=== PATIENT | male | born 1970 | race American Indian/Alaskan Native ===

== ENCOUNTER 2017-05-17 19:13 | Emergency (ER) | payer BC ==
[2017-05-17] MEDS ORDERED: Sodium Chloride 0.9% 1,000 ML IV STA ×2 (19:46→22:27)
--- NOTE | 2017-05-17 19:52 | ED PDOC ---
Arrival/HPI - General Chief Complaint: Chest Pain Time Seen by Provider: 05/17/17 19:24 Historian: Patient - History of Present Illness Narrative History of Present Illness (Text): 05/17/17 19:50 47 year old male PMHX HTN presents to the Emergency department complaining of episodes of vomiting associated with left sided chest discomfort some upper left abdominal discomfort at times. Patient denies any fever, chills, shortness of breath, back pain, neck pain, headache, dizziness or any other complaints. Time/Duration: Other (< 24 hours) Symptom Onset: Gradual Symptom Course: Unchanged Context: Home Past Medical History - Provider Review Nursing Documentation Reviewed: Yes - Infectious Disease Hx of Infectious Diseases: None - Cardiac Hx Cardiac Disorders: Yes Hx Hypertension: Yes - Psychiatric Hx Substance Use: No Family/Social History - Physician Review Nursing Documentation Reviewed: Yes Family/Social History: Unknown Family HX Smoking Status: Current Some Days Smoker Hx Alcohol Use: No Hx Substance Use: No Allergies/Home Meds Allergies/Adverse Reactions: Allergies No Known Allergies Allergy (Unverified 05/17/17 19:45) Home Medications: Home Meds Medication Instructions Recorded Confirmed Cholecalciferol (Vitamin D3) 4,000 unit PO DAILY 05/17/17 05/17/17 [Vitamin D3] Lisinopril [Zestril] 10 mg PO DAILY 05/17/17 05/17/17 Multimineral/Multivitamin 1 tab PO DAILY 05/17/17 05/17/17 [Therapeutic-M Tab] Review of Systems - Physician Review All systems were reviewed & negative as marked: Yes - Review of Systems Constitutional: absent: Fevers, Night Sweats Respiratory: absent: SOB Cardiovascular: absent: Chest Pain Gastrointestinal: Abdominal Pain (left sided discomfort), Vomiting Musculoskeletal: absent: Back Pain, Neck Pain Neurological: absent: Headache, Dizziness Physical Exam Vital Signs Reviewed: Yes Vital Signs Temp Pulse Resp BP Pulse Ox 05/18/17 09:12 74 168/120 H 05/18/17 08:51 82 16 159/94 H 95 05/18/17 06:53 67 19 151/94 H 99 05/18/17 05:08 78 16 156/94 H 98 05/18/17 02:52 66 16 144/82 97 05/17/17 23:00 90 20 116/72 100 05/17/17 21:30 80 18 144/80 96 05/17/17 19:28 98.0 F 74 18 166/101 H 100 Temperature: Afebrile Blood Pressure: Hypertensive Pulse: Regular Respiratory Rate: Normal Appearance: Positive for: Well-Appearing, Non-Toxic, Comfortable Pain Distress: None Mental Status: Positive for: Alert and Oriented X 3 - Systems Exam Head: Present: Atraumatic, Normocephalic Pupils: Present: PERRL Extroacular Muscles: Present: EOMI Conjunctiva: Present: Normal Mouth: Present: Moist Mucous Membranes Neck: Present: Normal Range of Motion Respiratory/Chest: Present: Clear to Auscultation, Good Air Exchange. No: Respiratory Distress, Accessory Muscle Use Cardiovascular: Present: Regular Rate and Rhythm, Normal S1, S2. No: Murmurs Abdomen: Present: Normal Bowel Sounds. No: Tenderness, Distention, Peritoneal Signs, Rebound, Guarding Back: Present: Normal Inspection Upper Extremity: Present: Normal Inspection. No: Cyanosis, Edema Lower Extremity: Present: Normal Inspection. No: Edema Neurological: Present: GCS=15, CN II-XII Intact, Speech Normal, Motor Func Grossly Intact, Normal Sensory Function Skin: Present: Warm, Dry, Normal Color. No: Rashes Psychiatric: Present: Alert, Oriented x 3, Normal Insight, Normal Concentration Medical Decision Making ED Course and Treatment: 05/17/17 19:46 Impression: 47 year old male presents to the Emergency department complaining of vomiting and chest discomfort. Plan: -- Chest xray -- EKG -- Labs -- Pepcid, Toradol, Zofran, Sodium Chloride IV fluids -- Reassess and disposition Progress Notes: 05/17/17 21:05 EKG: Ordered, reviewed, and independently interpreted the EKG. Rate : 70 BPM Rhythm : NSR Interpretation : normal intervals, normal EKG 05/17/17 22:23 Patient will be admitted under service.Dr. Duncan and Dr. Meredith GI and Cardiac consults requested. - Lab Interpretations Lab Results: 05/17/17 19:50 05/17/17 19:50 Lab Results 05/17/17 19:50: CK-MB (CK-2) 0.6 05/17/17 19:50: WBC 8.2, RBC 5.20, Hgb 16.3, Hct 46.0, MCV 88.5, MCH 31.3, MCHC 35.4, RDW 12.9, Plt Count 199, MPV 9.6 05/17/17 19:50: Sodium 139, Potassium 3.9, Chloride 101, Carbon Dioxide 24, Anion Gap 19, BUN 12, Creatinine 0.8, Est GFR ( Amer) > 60, Est GFR (Non- Af Amer) > 60, Random Glucose 153 H, Calcium 10.6 H, Total Bilirubin 0.7, AST 43 , ALT 25, Alkaline Phosphatase 78, Lactate Dehydrogenase 397, Total Creatine Kinase 277 H, CK-MB (CK-2) 0.6, CK-MB (CK-2) % Cancelled, Troponin I < 0.01, Total Protein 8.4 H, Albumin 5.0 H, Globulin 3.4, Albumin/Globulin Ratio 1.5, Lipase 27 05/17/17 19:50: PT 13.3 H, INR 1.16 H, APTT 25.5 - RAD Interpretation Narrative RAD Interpretations (Text): 05/17/17 22:02 CXR- No acute process Radiology Orders: 05/17/17 19:45 CHEST PORTABLE [RAD] Stat Academic Hospitalist: ED Physician - Medication Orders Current Medication Orders: Sodium Chloride (Sodium Chloride 0.9%) 1,000 mls @ 100 mls/hr IV .Q10H [facility] Last Admin: 05/18/17 09:12 Dose: 100 mls/hr eMAR Start Stop Document 05/18/17 09:12 [facility] [place]Rec: 05/18/17 09:13 [facility] [id number][place] Intravenous Solution Start Date 05/18/17 Start Time 09:12 Insulin Human Regular (Humulin R Med) 0 units SC [facility] PRN Reason: Protocol Last Admin: 05/18/17 09:10 Dose: Not Given Non-Admin Reason: Blood Sugar Parameter MAR Blood Glucose Document 05/18/17 09:10 [facility] [place]Rec: 05/18/17 09:[address]) Blood Glucose Finger Stick Blood Glucose (70-120) 111 Lisinopril (Zestril) 10 mg PO DAILY [facility] Last Admin: 05/18/17 09:12 Dose: 10 mg MAR Pulse and Blood Pressure Document 05/18/17 09:12 [facility] [place]Rec: 05/18/17 09:[address]) Pulse Pulse Rate (60-90) 74 Blood Pressure Blood Pressure (100/60-150/90) 168/120 Discontinued Medications Famotidine (Pepcid) 20 mg IVP STAT STA Stop: 05/17/17 19:47 Last Admin: 05/17/17 20:01 Dose: 20 mg IVP Administration Document 05/17/17 20:01 CNR (Rec: 05/17/17 20:01 CNR [id number]) Charges for Administration # of IVP Administrations 1 Sodium Chloride (Sodium Chloride 0.9%) 1,000 mls @ 999 mls/hr IV .Q1H1M STA Stop: 05/17/17 20:46 Last Admin: 05/17/17 20:02 Dose: 999 mls/hr eMAR Start Stop Document 05/17/17 20:02 CNR (Rec: 05/17/17 20:02 CNR [id number]) Intravenous Solution Start Date 05/17/17 Start Time 20:02 Sodium Chloride (Sodium Chloride 0.9%) 500 mls @ 500 mls/hr IV .Q1H STA Stop: 05/17/17 22:35 Last Admin: 05/17/17 21:55 Dose: 500 mls/hr eMAR Start Stop Document 05/17/17 21:55 CNR (Rec: 05/17/17 21:55 CNR [id number]) Intravenous Solution Start Date 05/17/17 Start Time 21:55 Sodium Chloride (Sodium Chloride 0.9%) 1,000 mls @ 100 mls/hr IV .Q10H STA Stop: 05/18/17 08:26 Ketorolac Tromethamine (Toradol) 30 mg IVP ONCE ONE Stop: 05/17/17 19:47 Last Admin: 05/17/17 20:02 Dose: 30 mg MAR Pain Assessment Document 05/17/17 20:02 CNR (Rec: 05/17/17 20:02 CNR [id number]) Pain Reassessment Is this a pain reassessment? Yes Description Description Constant IVP Administration Document 05/17/17 20:02 CNR (Rec: 05/17/17 20:02 CNR [id number]) Charges for Administration # of IVP Administrations 1 Morphine Sulfate (Morphine) 4 mg IVP STAT STA Stop: 05/17/17 21:25 Last Admin: 05/17/17 21:36 Dose: 4 mg MAR Pain Assessment Document 05/17/17 21:36 CNR (Rec: 05/17/17 21:36 CNR RITCHIE) Pain Reassessment Is this a pain reassessment? Yes IVP Administration Document 05/17/17 21:36 CNR (Rec: 05/17/17 21:36 CNR [id number]) Charges for Administration # of IVP Administrations 1 Morphine Sulfate (Morphine) 4 mg IVP STAT STA Stop: 05/17/17 23:26 Last Admin: 05/17/17 23:31 Dose: 4 mg MAR Pain Assessment Document 05/17/17 23:31 CNR (Rec: 05/17/17 23:31 CNR [id number]) Pain Reassessment Is this a pain reassessment? Yes IVP Administration Document 05/17/17 23:31 CNR (Rec: 05/17/17 23:31 CNR [id number]) Charges for Administration # of IVP Administrations 1 Morphine Sulfate (Morphine) 4 mg IVP STAT STA Stop: 05/17/17 23:26 Last Admin: 05/17/17 23:30 Dose: Not Given Non-Admin Reason: Patient Refused Ondansetron HCl (Zofran Inj) 4 mg IVP ONCE ONE Stop: 05/17/17 19:47 Last Admin: 05/17/17 20:02 Dose: 4 mg IVP Administration Document 05/17/17 20:02 CNR (Rec: 05/17/17 20:02 CNR [id number]) Charges for Administration # of IVP Administrations 1 Ondansetron HCl (Zofran Inj) 4 mg IVP ONCE ONE Stop: 05/17/17 21:19 Last Admin: 05/17/17 21:18 Dose: 4 mg IVP Administration Document 05/17/17 21:18 CNR (Rec: 05/17/17 21:34 CNR [id number]) Charges for Administration # of IVP Administrations 1 Ondansetron HCl (Zofran Inj) 4 mg IVP Q4H PRN PRN Reason: Nausea/Vomiting Stop: 05/18/17 10:00 Last Admin: 05/17/17 23:07 Dose: 4 mg IVP Administration Document 05/17/17 23:07 CNR (Rec: 05/17/17 23:07 CNR [id number]) Charges for Administration # of IVP Administrations 1 - Scribe Statement The provider has reviewed the documentation as recorded by the Scribe Xavier Brennan All medical record entries made by the Scribe were at my direction and personally dictated by me. I have reviewed the chart and agree that the record accurately reflects my personal performance of the history, physical exam, medical decision making, and the department course for this patient. I have also personally directed, reviewed, and agree with the discharge instructions and disposition. Disposition/Present on Arrival - Present on Arrival Any Indicators Present on Arrival: No History of DVT/PE: No History of Uncontrolled Diabetes: No Urinary Catheter: No History of Decub. Ulcer: No History Surgical Site Infection Following: None - Disposition Have Diagnosis and Disposition been Completed?: Yes Diagnosis: Chest pain, Vomiting Disposition: HOSPITALIZED Disposition Time: 22:22 Patient Plan: Observation Patient Problems: Current Active Problems Problem Status Onset Chest pain Acute Vomiting Acute Condition: STABLE
[2017-05-17 20:21] LABS: WHITE BLOOD COUNT 8.2 10^3/ul (4.5-11.0)
[2017-05-17 20:22] LABS: HEMOGLOBIN 16.3 g/dL (14.0-18.0); MEAN CELL VOLUME 88.5 fl (80.0-105.0); MEAN CORPUSCULAR HEMOGLOBIN 31.3 pg (25.0-35.0); MEAN CORPUSCULAR HGB CONC 35.4 g/dl (31.0-37.0); MEAN PLATELET VOLUME 9.6 fl (7.0-11.0); RBC 5.2 10^6/uL (3.5-6.1); RED CELL DISTRIBUTION WIDTH 12.9 % (11.5-14.5)
[2017-05-17 20:28] LABS: ALB/GLOB RATIO 1.5 (1.1-1.8); ALT/SGPT 25 U/L (7-56); AST/SGOT 43 U/L (17-59); BLOOD UREA NITROGEN 12 mg/dL (7-21); CALCIUM 10.6 mg/dL (8.4-10.5); GFR AFRICAN-AMERICAN > 60; GFR NON-AFRICAN AMERICAN > 60; INR 1.16 (0.93-1.08); LIPASE 27 U/L (23-300); PARTIAL THROMBOPLASTIN TIME 25.5 Seconds (25.1-36.5); PROTHROMBIN TIME 13.3 SECONDS (9.4-12.5)
[2017-05-17 20:33] LABS: TROPONIN I < 0.01 ng/mL
[2017-05-17 20:48] LABS: CK-MB 0.6 ng/mL (0.0-3.6)
[2017-05-17] MEDS ORDERED: Morphine 2 mg/ml ISec IVP STA ×2 (21:22→23:25)
[2017-05-17] MEDS ORDERED: Morphine 4 mg/ml ISec IVP STA ×2 (21:24→23:25)
[2017-05-17] MEDS ORDERED: Sodium Chloride 0.9% 500 ML IV STA (21:36)
[2017-05-17] MEDS: Sodium Chloride 0.9% 1,000 ML IV SCH (23:07)
--- NOTE | 2017-05-18 08:17 | CP.PCM.CON ---
<Ranjith Neal - Last Filed: 05/18/17 11:03> History of Present Illness - History of Present Illness History of Present Illness: GI Consult Note: 47 M with pmh of HTN, history of pancreatitis presents to the ED complaining of severe abdominal pain accompanied with nausea and vomiting. Pt states that his pain started yesterday. He states that the abdominal pain is diffuse, intermittent and 10/10 in severity at its worse. He states he had multiple bouts of nausea and NBNB vomiting at home. He denies any other diarrhea and states that his last BM was yesterday. He does admit to drinking 2 days ago ( thursday night). He denies any distant travel. 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 He denies eating out or having having any fastfood. Denies any zarate, dizziness, f/c, sob, chest pain, palpitations, dirrhea, urinary changes. 12 Point ROS performed and negative other than stated above. PMH: HTN and hx of Pancreatitis PSH: Denies Med: refer to MAR ALL: NKA SH: admits to drinking a few shots twice a week, admits to drinking heavily in the past. Smokes 5-10 cig x 30 years, Denies any drugs FH: denies Endo hx: has had in the past "many years ago" Review of Systems - Review of Systems All systems: reviewed and no additional remarkable complaints except Past Patient History - Infectious Disease Hx of Infectious Diseases: None - Past Social History Smoking Status: Current Some Days Smoker - CARDIAC Hx Cardiac Disorders: Yes Hx Hypertension: Yes - PSYCHIATRIC Hx Substance Use: No Meds Allergies/Adverse Reactions: Allergies Allergy/AdvReac Type Severity Reaction Status Date / Time No Known Allergies Allergy Unverified 05/17/17 19:45 - Medications Medications: Current Medications Sodium Chloride (Sodium Chloride 0.9%) 1,000 mls @ 100 mls/hr IV .Q10H [facility] Last Admin: 05/17/17 23:07 Dose: 100 mls/hr Sodium Chloride (Sodium Chloride 0.9%) 1,000 mls @ 100 mls/hr IV .Q10H STA Stop: 05/18/17 08:26 Insulin Human Regular (Humulin R Med) 0 units SC ACHS [facility] PRN Reason: Protocol Lisinopril (Zestril) 10 mg PO DAILY [facility] Ondansetron HCl (Zofran Inj) 4 mg IVP Q4H PRN PRN Reason: Nausea/Vomiting Stop: 05/18/17 10:00 Last Admin: 05/17/17 23:07 Dose: 4 mg Physical Exam - Constitutional Appears: No Acute Distress - Head Exam Head Exam: ATRAUMATIC, NORMOCEPHALIC - Eye Exam Eye Exam: EOMI, PERRL - ENT Exam ENT Exam: Mucous Membranes Moist - Respiratory Exam Respiratory Exam: Clear to Auscultation Bilateral. absent: Rales, Wheezes - Cardiovascular Exam Cardiovascular Exam: REGULAR RHYTHM, RRR, +S1, +S2 - GI/Abdominal Exam GI & Abdominal Exam: Normal Bowel Sounds, Soft, Tenderness. absent: Distended, Guarding Additional comments: Mild tenderness - Extremities Exam Extremities exam: Negative for: calf tenderness, pedal edema - Neurological Exam Neurological exam: Alert, CN II-XII Intact, Oriented x3 - Psychiatric Exam Psychiatric exam: Normal Affect, Normal Mood - Skin Skin Exam: Dry, Intact, Warm Results - Vital Signs Recent Vital Signs: Last Vital Signs Temp 98.0 F 05/17/17 19:28 Pulse 67 05/18/17 06:53 Resp 19 05/18/17 06:53 BP 151/94 H 05/18/17 06:53 Pulse Ox 99 05/18/17 06:53 - Labs Result Diagrams: 05/17/17 19:50 05/18/17 09:30 Assessment & Plan - Assessment and Plan (Free Text) Assessment: 47 M with pmh of HTN, history of pancreatitis presents to the ED complaining of severe abdominal pain accompanied with nausea and vomiting. - Currently his abd pain has significantly improved - CT Abd/Pelvis with PO/IV contrast ordered to r/o any pancreatitis given the patients history - Continue NS @ 100 - Pain control - Antiemetics with Zofran - Will cont to monitor for any changes Pt was seen and plan discussed in detail with Dr Guillen. <Vernon Guillen - Last Filed: 05/18/17 11:47> Meds - Medications Medications: Current Medications Sodium Chloride (Sodium Chloride 0.9%) 1,000 mls @ 100 mls/hr IV .Q10H [facility] Last Admin: 05/18/17 09:12 Dose: 100 mls/hr Insulin Human Regular (Humulin R Med) 0 units SC ACHS [facility] PRN Reason: Protocol Last Admin: 05/18/17 09:10 Dose: Not Given Lisinopril (Zestril) 10 mg PO DAILY [facility] Last Admin: 05/18/17 09:12 Dose: 10 mg Results - Vital Signs Recent Vital Signs: Last Vital Signs Temp 98.0 F 05/17/17 19:28 Pulse 66 05/18/17 11:11 Resp 16 05/18/17 11:11 BP 155/95 H 05/18/17 11:11 Pulse Ox 96 05/18/17 11:11 - Labs Result Diagrams: 05/17/17 19:50 05/18/17 09:30 Labs: Laboratory Results - last 24 hr 05/18/17 05/18/17 08:59 09:30 Sodium 140 Potassium 3.8 Chloride 101 Carbon Dioxide 28 Anion Gap 14 BUN 14 Creatinine 0.8 Est GFR ( Amer) > 60 Est GFR (Non-Af Amer) > 60 POC Glucose (mg/dL) 111 H Random Glucose 139 H Calcium 9.7 Total Bilirubin 0.7 AST 27 ALT 29 Alkaline Phosphatase 62 Troponin I < 0.01 Total Protein 7.6 Albumin 4.2 Globulin 3.3 Albumin/Globulin Ratio 1.3 Attending/Attestation - Attestation I have personally seen and examined this patient.: Yes I have fully participated in the care of the patient.: Yes I have reviewed all pertinent clinical information: Yes Notes (Text): 05/18/17 11:37 I have seen and examined patient with GI fellow and medical equipment repair technician. Agree with above documentation with the following additions. In brief, this is a 47 year old male with history of HTN, pancreatitis who presents to hospital with complaint of sudden onset abdominal pain. He describes a sharp, 10/10 intensity diffuse pain that started yesterday at 3 pm. Prior to this he was in usual state of health. The pain was worse after meal consumption, for breakfast patient had a butter roll and coffee. This was associated with multiple episodes of non-bloody emesis yesterday and he subsequently came to hospital. He denies fever/chills, weight loss, rectal bleeding, unusual food consumption, or recent antibiotic use. Of note, patient works in [employer] and has sick exposure through patient contacts. He does admit to drinking ETOH the night before symptoms began which he typically does not do. He does have a remote history of pancreatitis 15 years ago and used to consume alcohol in excess. He had an EGD several years ago, no prior colonoscopy. Family history: reviewed, patient denies GI malignancies Additional physical examination: Abdomen: no palpable hepato/splenomegaly HTN Abdominal pain, nausea, vomiting - resolving gastroenteritis vs acute pancreatitis given recent history of ETOH consumption - NPO - Obtain CT imaging for further evaluation of pancreas - Obtain serum toxicology screen - Continue with supportive care, anti-emetic therapy, IVF hydration - If workup is negative, can likely advance diet as tolerated and discharge from hospital given improvement in patient symptoms - Patient would benefit from outpatient age appropriate screening colonoscopy. Will continue to monitor patient clinical course.
--- NOTE | 2017-05-18 08:53 | HP ---
HISTORY OF PRESENT ILLNESS: I saw him in the emergency room [facility]. He is comfortable in bed at this time. He came in with a history of nausea, vomiting, left-sided chest discomfort, some left abdominal discomfort x2 and he is 47 years old. PAST MEDICAL HISTORY: He has got past medical history of hypertension. FAMILY HISTORY: Unknown family history. SOCIAL HISTORY: He does smoke cigarettes. We discussed quitting no alcohol. No drugs. ALLERGIES: NO KNOWN DRUG ALLERGIES. MEDICATIONS: He takes vitamin D, Zestril, and multivitamin. REVIEW OF SYSTEMS: No acute vision changes or hearing changes. No throat pain. No neck pain. No shortness of breath or coughing. He does have chest pain. No palpitations. He has some abdominal pain on the left side; some vomiting, little nauseousness. No constipation or diarrhea. No back pain. No leg pains. No headaches. No problems urinating. No anxiety or depression. PHYSICAL EXAMINATION: GENERAL: He is comfortable, well appearing in the gurney in the ER. He is alert and oriented x3. No more chest pain, little nauseous, but no vomiting. VITAL SIGNS: He has 98 temperature, 74 pulse, 18 respiratory rate, 166/101 blood pressure, and 100% O2 saturation. I will put him back on his Zestril at this time. HEENT: Extraocular muscles intact. Throat is moist. NECK: Supple. Thyroid midline. No appreciable lymphadenopathy. HEART: Regular rate. Normal S1 and S2. LUNGS: Decreased breath sounds, but clear to auscultation bilaterally. ABDOMEN: Soft and nontender. Positive bowel sounds. No guarding. No rebound or CVA tenderness at this time. EXTREMITIES: No edema. NEUROLOGIC: GCS of 15. Cranial nerves II through XII grossly intact. Normal speech. Alert and oriented x3. SKIN: Warm and dry. No apparent appreciated rashes or ulcers. LABORATORY DATA: He has got a 139 sodium, potassium 3.9, BUN 12, creatinine 0.8, GFR greater than 60, sugar 153, calcium is 10.6, total bilirubin is 0.7, AST is 43, ALT is 25, alkaline phosphatase 78, and lactate dehydrogenase is 397. Troponin I is less than 0.01, total protein is 8.4, and lipase is 27. INR is 1.16 with 8.2 white count, 16.3 hemoglobin, 46 hematocrit with 199 platelets. Chest x-ray is pending. We will have consult with GI and consult with Cardiology. He will have IV fluids and Zofran. We will check on his troponins. Hopefully, if he does well, the nauseousness goes away, we could feed him later. If troponins were all negative, possibly discharge for outpatient stress test later today. He is here for chest pain and nauseousness. Lele Escalera DO
--- NOTE | 2017-05-18 09:02 | RAD ---
HISTORY: abdominal pain COMPARISON: No prior. FINDINGS: LUNGS: The lungs are clear. PLEURA: No significant pleural effusion identified, no pneumothorax apparent. CARDIOVASCULAR: Normal. OSSEOUS STRUCTURES: No significant abnormalities. VISUALIZED UPPER ABDOMEN: Normal. OTHER FINDINGS: None. IMPRESSION: No active pulmonary disease.
[2017-05-18] MEDS: Insulin Reg-MEDIUM-Coverage SC SCH ×2 (09:10→13:12)
[2017-05-18] MEDS: Sodium Chloride 0.9% 1,000 ML IV SCH ×2 (09:12→18:59)
[2017-05-18 10:06] LABS: TROPONIN I < 0.01 ng/mL
[2017-05-18 10:10] LABS: ALB/GLOB RATIO 1.3 (1.1-1.8); ALBUMIN 4.2 g/dL (3.0-4.8); ALT/SGPT 29 U/L (7-56); AST/SGOT 27 U/L (17-59); BLOOD UREA NITROGEN 14 mg/dL (7-21); CALCIUM 9.7 mg/dL (8.4-10.5); GFR AFRICAN-AMERICAN > 60; GFR NON-AFRICAN AMERICAN > 60
[2017-05-18] MEDS ORDERED: Iohexol 240 (50 ml) ONE (10:53)
[2017-05-18] MEDS ORDERED: Iohexol 350 MG/100 ML VIAL ONE (12:38)
--- NOTE | 2017-05-18 13:11 | CT ---
PROCEDURE: CT Abdomen and Pelvis with contrast HISTORY: Abd pain COMPARISON: None. TECHNIQUE: Contrast dose: 100 cc of Omni 350 Radiation dose: Total exam DLP = 374 mGy-cm. This CT exam was performed using one or more of the following dose reduction techniques: Automated exposure control, adjustment of the mA and/or kV according to patient size, and/or use of iterative reconstruction technique. FINDINGS: LOWER THORAX: Unremarkable. LIVER: Unremarkable. No gross lesion or ductal dilatation. GALLBLADDER AND BILE DUCTS: Unremarkable. PANCREAS: Unremarkable. No gross lesion or ductal dilatation. SPLEEN: Unremarkable. ADRENALS: Unremarkable. No mass. KIDNEYS AND URETERS: Unremarkable. No hydronephrosis. 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 . VASCULATURE: Unremarkable. No aortic aneurysm. BOWEL: Unremarkable. No obstruction. No gross mural thickening. APPENDIX: Normal appendix. PERITONEUM: Unremarkable. No free fluid. No free air. LYMPH NODES: Unremarkable. No enlarged lymph nodes. BLADDER: Unremarkable. REPRODUCTIVE: Unremarkable. BONES: No acute fracture. OTHER FINDINGS: None. IMPRESSION: Unremarkable contrast enhanced CT of the abdomen and pelvis.
[2017-05-18 13:14] LABS: BARBITURATES, UR NEGATIVE (NEGATIVE); BENZODIAZEPINES, UR NEGATIVE (NEGATIVE); OPIATES, UR POSITIVE (NEGATIVE); PHENCYCLIDINE, UR NEGATIVE (NEGATIVE)
--- NOTE | 2017-05-18 16:52 | CARD ---
APPROVED REPORT EKG Measurement Heart [id number] <Conclusion> Normal sinus rhythm Normal ECG
[2017-05-18 17:31] VITALS: RESP 18; O2SAT 98
[2017-05-18 18:58] VITALS: BP 133/87; PULSE 75; TEMP 98.5
--- NOTE | 2017-05-18 23:59 | CON ---
DATE: 05/18/2017 CARDIOLOGY CONSULTATION HISTORY OF PRESENT ILLNESS: The patient is a 47-year-old male who presents with abdominal pain and nausea. The patient's past medical history is significant for history of hypertension, history of pancreatitis in the past, with no previous cardiac history. No diabetes mellitus is noted. The patient rarely drinks alcohol, but did recent alcohol intake. He denies shortness of breath. No previous myocardial infarction or previous cardiac history. SOCIAL HISTORY: The patient does smoke. 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 REVIEW OF SYSTEMS: Fourteen-point review of systems was reviewed in detail. No cardiac symptomatology is noted. PHYSICAL EXAMINATION: VITAL SIGNS: Blood pressure varies from 155-171 systolic, heart rate is in the 70s. NECK: Negative JVD. LUNGS: Without rales. HEART: Reveals S1, S2. EXTREMITIES: Without edema. LABORATORY DATA: Hemoglobin is 16.3. Chemistries: BUN and creatinine unremarkable. The glucose is 139. Troponins are negative x2. The lipase is normal. CT of the abdomen is unremarkable. Chest x-ray performed in the emergency room report reveals no acute pulmonary disease. IMPRESSION: 1. Abdominal pain with nausea and vomiting. 2. Hypertension. 3. Remote history of pancreatitis. 4. No evidence for acute coronary syndrome. 5. History of nicotine addiction. Given his findings, the patient is likely suffering from gastroenteritis. His hypertension is controlled medically. There is no evidence for acute coronary syndrome. Given these findings, I have discussed this with the patient in detail. Given his smoking history and he is hypertensive, I have discussed with him about the need for cardiac evaluation once his gastrointestinal symptomatology is resolved. Yoel Meredith MD
--- NOTE | 2017-05-19 07:04 | DS ---
HOSPITAL COURSE: He is going to be discharged home today. He did well with this test. All three troponins were negative. He is eating and no abdominal pain. GI said he can go home. Cardiology said they are not going to do anything for the three negative troponins, they thought that it was some sort of pancreatitis; although, his lipase was 27. He is discharged to home with outpatient followup with his primary care doctor Lele Escalera DO MTDJose M
== END 2017-05-18 19:00 | disposition home or self-care (01) ==
LOC: ED 19:13 → UNDOADMOB 22:22 → ERH 22:22 → ED 05-18 19:00
DX: R07.9 Chest pain, unspecified (principal); R11.10 Vomiting, unspecified; I10 Essential (primary) hypertension; F17.210 Nicotine dependence, cigarettes, uncomplicated
CPT/HCPCS: 71045; 74177; 80053; 82550; 82553; 82948; 83615; 83690; 84484; 85027; 85610; 85730; 93005; 96361; 96374; 96375; 96376; 99285; G0480; J1885; J2270; J2405; J7040; Q9966; Q9967